=== PATIENT | female | born 1975 | race Caucasian/White ===

== ENCOUNTER 2019-09-12 08:49 | Day surgery (SDC) | payer BC, OTHER ==
[2019-09-11 16:36] VITALS: BMI 23.3
[2019-09-12] MEDS ORDERED: MIDAZOLAM HCL 2 MG/2 ML SINGLE DOSE VIAL ONE (10:19)
[2019-09-12 10:56] VITALS: TEMP 98.2
--- NOTE | 2019-09-12 11:55 | EKG ---
Test Reason : Blood Pressure : / mmHG Vent. Rate : 076 BPM Atrial Rate : 076 BPM P-R Int : 138 ms QRS Dur : 094 ms QT Int : 386 ms P-R-T Axes : 066 091 056 degrees QTc Int : 434 ms SINUS RHYTHM WITH FREQUENT PREMATURE VENTRICULAR COMPLEXES IN A PATTERN OF BIGEMINY RIGHTWARD AXIS INCOMPLETE RIGHT BUNDLE BRANCH BLOCK BORDERLINE ECG NO PREVIOUS ECGS AVAILABLE Confirmed by ALEXANDER CLARK, GERMAN ([id number]) on 09/12/2019 11:55:28 AM Referred By: Luis Mendosa Confirmed By:GERMAN MUNOZ MD
--- NOTE | 2019-09-12 12:53 | CON.CARD ---
Cardiology Consult (text) - Consultation Consultation Note: cc: abnl ecg hpi: 44 f no sig pmhx here for elective GI scope. After procedure noted to have pvcs and bigeminy on monitor. Pt has no sxs. No cp sob palps dizzy loc pnd orthopnea le edema. Does cardio exercise often w/o anginal sxs. Pt reports that approx 10 years ago was found to have extra beats on ecg and saw cardiology then and had unremarkable holter, stress test, echo. If she is stressed or has too much caffeine she sometimes has palps. pmh: per hpi psh:knee surgery social: no tob fam: no premature cad, scd ros: per hpi; all others nl meds: none taken pe: Vital Signs Period Temp Pulse Resp BP Sys/Wild Pulse Ox Last 24 Hr 98.0 F-98.2 F 42-94 13-20 100-112/56-80 99-100 nad no jvd rrr s1s2 no mrg cta bl nl eff aao3 no le e/c/c abd nt nd pos bs no jaundice diaphoresis pos dp pt ecg: sr, nl intervals, no iscehmic changes, pvcs in bigeminy, IRBBB a/p: 44 f no sig pmhx here for elective GI scope. abnl ecg: -ecg and tele showing pvcs, sometimes in bigeminy pattern. pt has no symptoms from these pvcs. no other concerning cardiac symptoms. Pt reports she was told of this irregular heartbeat many years ago and had a nl cardiac eval about 10 yrs ago. 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 Would recommend outpt cardio eval with echo and holter. Ok for dc at this time from cardiac pov.
[2019-09-12 13:13] VITALS: BP 116/63; PULSE 88
== END 2019-09-12 12:55 | disposition home or self-care (01) ==
LOC: JASU-ENDO 08:49
PROVIDERS: ATTEND Internal Medicine Gastroenterology
PROC: 0DJD8ZZ Inspection of Lower Intestinal Tract, Via Natural or Artificial Opening Endoscopic (ICD-10-PCS; principal; 2019-09-12 10:15)
DX: K92.1 Melena (principal); K64.8 Other hemorrhoids
CPT/HCPCS: 81025; 93005; 93010